=== PATIENT | male | born 1965 | race Caucasian/White ===

== ENCOUNTER → 2024-10-19 09:13 | Outpatient (REF) | payer BC, SELFPAY | LOC: HWRAD 09:13 | PROVIDERS: ATTENDING PHYSICIAN Nurse Practitioner Gerontology | DX: M19.012 Primary osteoarthritis, left shoulder (principal); M24.412 Recurrent dislocation, left shoulder | CPT/HCPCS: 73200 ==

== ENCOUNTER 2025-08-25 06:19 | Day surgery (SDC) | payer BC, SELFPAY | END 2025-08-25 09:03 | disposition home or self-care (01) | LOC: GI 06:19 | PROVIDERS: ATTENDING PHYSICIAN Internal Medicine Gastroenterology | DX: Z12.11 Encounter for screening for malignant neoplasm of colon (principal); D12.0 Benign neoplasm of cecum; D12.3 Benign neoplasm of transverse colon; K57.30 Diverticulosis of large intestine without perforation or abscess without bleeding; K56.2 Volvulus; K62.89 Other specified diseases of anus and rectum; K64.9 Unspecified hemorrhoids; Z86.0100 Personal history of colon polyps, unspecified | CPT/HCPCS: 45380; 88305 ==